=== PATIENT | female | born 2000 | race Caucasian/White ===

== ENCOUNTER 2024-04-11 05:12 | Emergency (ER) | payer OTHER ==
[~2024-04-11] VITALS: Ht 154.9 cm; Wt 45.4 kg
[2024-04-11 05:15] VITALS: BP 130/72; PULSE 136; RESP 18; TEMP 98.1; O2SAT 98
[2024-04-11 06:00] VITALS: BP 130/72; PULSE 136; RESP 18; TEMP 98.1; O2SAT 98
== END 2024-04-11 06:00 | disposition home or self-care (01) ==
LOC: MED 05:12
DX: S01.111A Laceration without foreign body of right eyelid and periocular area, initial encounter (principal); Y04.0XXA Assault by unarmed brawl or fight, initial encounter; Y92.009 Unspecified place in unspecified non-institutional (private) residence as the place of occurrence of the external cause; Y93.89 Activity, other specified; Y99.8 Other external cause status
CPT/HCPCS: 12013; 99283

== ENCOUNTER 2024-04-16 08:22 | Emergency (ER) | payer OTHER ==
[~2024-04-16] VITALS: Ht 152.4 cm; Wt 45.1 kg
[2024-04-16 08:34] VITALS: BP 101/74; PULSE 87; RESP 18; TEMP 98.3; O2SAT 100
[2024-04-16] MEDS ORDERED: LIDOCAINE 2% 100 MG/5 ML UJET TP ONE (09:05)
[2024-04-16] MEDS: LIDOCAINE 2% 100 MG/5 ML UJET TP ONE (09:09)
[2024-04-16] MEDS: LIDOCAINE OINTMENT 5% 35 GM TUBE TP ONE (09:10)
== END 2024-04-16 09:29 | disposition home or self-care (01) ==
LOC: MED 08:22
DX: S01.111D Laceration without foreign body of right eyelid and periocular area, subsequent encounter (principal); Z48.02 Encounter for removal of sutures; X58.XXXD Exposure to other specified factors, subsequent encounter
CPT/HCPCS: 99281